=== PATIENT | male | born 1925 | race Caucasian/White ===

== ENCOUNTER 2017-02-21 11:45 | Inpatient (IN) | payer OTHER, BC ==
--- NOTE | 2017-02-21 12:45 | PDOC ---
History of Present Illness - General History Source: Patient Exam Limitations: No Limitations - History of Present Illness Initial Comments: 02/21/17 13:25 The patient is a 89 year old male BIBA, with a significant past medical history of Atrial fibrillation, CAD, MS, CHF, Duodenal ulcer, GIB, HTN, HLD, frequent falls who presents to the emergency department with L hip pain s/p mechanical fall 2 days ago. Caregiver states the patient fell on his L side while transferring him from the wheelchair to the commode. Patient reports pain 4/10 in severity without radiation or numbness. Patient denies any injuries, head trauma, LOC, dizziness or lightheadedness. Patient also complaints of diarrhea for the past day due to eating funny clams and has been feeling weak since then. Patient denies taking any pain medications for relief. Caregiver decided to bring the patient in for further evaluation. He denies chest pain, headache or dizziness. He denies fever, chills, abdominal pain, nausea, vomit, constipation. He denies dysuria, frequency, urgency or hematuria. Allergies: NKA Past surgical history: Appendectomy, CABG x4, cholecystectomy, L hip replacement , bilateral ankle surgery, L shoulder dislocation Social history: None PCP: Dr. Ryan Ramos <Rayne Fowler - Last Filed: 02/21/17 17:53> <Fartun Ku - Last Filed: 02/24/17 12:07> - General Stated Complaint: FALL/LEFT HIP Time Seen by Provider: 02/21/17 11:50 Past History <Rayne Fowler - Last Filed: 02/21/17 17:53> - Past Medical History Anemia: No Asthma: No Cancer: No Cardiac Disorders: Yes (CABG/Stent, mi, afib, cad) CVA: No COPD: No CHF: Yes Dementia: No Diabetes: No GI Disorders: Yes (Duodenal Ulcer, GIB) Disorders: No HTN: Yes Hypercholesterolemia: Yes Liver Disease: No Seizures: No Thyroid Disease: No - Surgical History Abdominal Surgery: Yes (DUODENAL SCAR-half his stomach) Appendectomy: Yes Cardiac Surgery: Yes (CABG x 4) Cholecystectomy: Yes Lung Surgery: No Neurologic Surgery: No Orthopedic Surgery: Yes (LT HIP REPLACEMENT, RT ARM sx, b/l ANKLE SX, left shoulder dislocation) - Immunization History Immunization Up to Date: Yes - Psycho/Social/Smoking Cessation Hx Anxiety: Yes Suicidal Ideation: No Smoking Status: No Smoking History: Never smoked Have you smoked in the past 12 months: No Number of Cigarettes Smoked Daily: 0 Hx Alcohol Use: No Drug/Substance Use Hx: No Substance Use Type: None Hx Substance Use Treatment: No <KuFartun - Last Filed: 02/24/17 12:07> - Past Medical History Allergies/Adverse Reactions: Allergies Allergy/AdvReac Type Severity Reaction Status Date / Time No Known Drug Allergies Allergy Verified 02/21/17 12:47 Home Medications: Ambulatory Orders Alprazolam 0.5 mg PO Q12H PRN 06/20/15 Amlodipine Besylate [Norvasc -] 10 mg PO DAILY 06/20/15 Ascorbic Acid [Vitamin C] 500 mg PO DAILY 06/20/15 Atorvastatin Ca [Lipitor] 40 mg PO HS 06/20/15 Calcium Carbonate/Vitamin D3 [Calcium 600-Vit D3 800 Tablet] 1 each PO DAILY Epinastine HCl 1 drop OU BID 06/20/15 Metoprolol Tartrate [Lopressor] 50 mg PO BID 06/20/15 Mirtazapine [Remeron -] 15 mg PO HS 06/20/15 Omeprazole [Prilosec] 20 mg PO DAILY 06/20/15 Carboxymethylcellulose Sodium [Lubricant Eye Drops] 1 drop OU BID 06/21/15 Latanoprost 0.005% Eye Drops [Xalatan 0.005% Eye Drops -] 1 drop OU HS 06/21/15 Spironolactone [Aldactone] 25 mg PO DAILY #0 tablet 06/26/15 Review of Systems - Review of Systems Able to Perform ROS?: Yes Comments:: 02/21/17 13:26 GENERAL/CONSTITUTIONAL: No fever or chills. No weakness. HEAD, EYES, EARS, NOSE AND THROAT: No change in vision. No ear pain or discharge. No sore throat. GASTROINTESTINAL: No nausea, vomiting, diarrhea or constipation. GENITOURINARY: No dysuria, frequency, or change in urination. CARDIOVASCULAR: No chest pain or shortness of breath. RESPIRATORY: No cough, wheezing, or hemoptysis. MUSCULOSKELETAL: + L hip pain. No joint or muscle swelling or pain. No neck or back pain. SKIN: No rash NEUROLOGIC: No headache, vertigo, loss of consciousness, or change in strength/ sensation. ENDOCRINE: No increased thirst. No abnormal weight change. HEMATOLOGIC/LYMPHATIC: No anemia, easy bleeding, or history of blood clots. ALLERGIC/IMMUNOLOGIC: No hives or skin allergy. <MalcolmRayne hammond - Last Filed: 02/21/17 17:53> *Physical Exam - Vital Signs Last Vital Signs Temp Pulse Resp BP Pulse Ox 98.0 F 79 18 103/62 95 02/21/17 12:48 02/21/17 12:48 02/21/17 12:48 02/21/17 12:48 02/21/17 12:48 <Palmer Fowlerhel - Last Filed: 02/21/17 17:53> ED Treatment Course - LABORATORY CBC & Chemistry Diagram: 02/21/17 13:19 02/21/17 13:19 <MlacolmRayne - Last Filed: 02/21/17 17:53> - LABORATORY CBC & Chemistry Diagram: 02/21/17 13:19 02/21/17 13:19 <Fartun Ku - Last Filed: 02/24/17 12:07> Medical Decision Making - Medical Decision Making 02/21/17 13:27 L Femur XR Impression: Periprosthetic fracture of the left intertrochanteric/ subtrochanteric femur. See above. Findings were discussed with Dr. Ku 4: 00 PM on February 21, 2017. Reported By: Victorina Scott MD 02/21/17 1603 L Hip/Pelvis XR IMPRESSION: Periprosthetic fracture of the left intertrochanteric/ subtrochanteric femur. See above. Findings were discussed with Dr. Ku 4: 00 PM on February 21, 2017. Reported By: Victorina Scott MD 02/21/17 1603 L Tib/Fib XR Impression: Acute nondisplaced fracture is seen in the proximal left fibula. Reported By: Buddy Villasenor MD 02/21/17 1413 02/21/17 16:07-- Dr. Khanna called via phone answering service. 02/21/17 16:21-- Dr. Khanna returned the page and the patient's case was discussed. 02/21/17 16:13-- Dr. Ramos paged via phone answering service 02/21/2017 16:19 -- Dr. Ramos returned the page and the patient's case was discussed. 02/21/17 17:50-- Dr. Khanna evaluated the patient in the ED 02/21/17 17:53-- Informed Dr. Ramos that patient will be transferred to [facility] due to complexity of orthopedic surgery. <Rayne Fowler - Last Filed: 02/21/17 17:53> - Medical Decision Making 02/21/17 17:55 Dr. Khanna at bedside to evaluate. Recommended transfer to [facility], as the surgery will be rather complicated and extensive. Dr. Ramos notified. 02/21/17 17:59 Accepted to [facility] by Dr. Adams, orthopedics. <Fartun Ku - Last Filed: 02/24/17 12:07> *DC/Admit/Observation/Transfer - Attestations Scribe Attestion: 02/21/17 13:26 Documentation prepared by Rayne Fowler, acting as medical office manager for Fartun Ku MD <Rayne Fowler - Last Filed: 02/21/17 17:53> - Transfer to Acute Care Facility Receiving Facility: [facility]. <Fartun Ku - Last Filed: 02/24/17 12:07> Diagnosis at time of Disposition: Periprosthetic fracture around internal prosthetic hip joint Qualifiers: Encounter type: initial encounter Laterality: left Qualified Code(s): M97.02XA - Periprosthetic fracture around internal prosthetic left hip joint, initial encounter Fracture, fibula, proximal Qualifiers: Encounter type: initial encounter Fracture type: closed Fracture morphology: unspecified fracture morphology Laterality: left Qualified Code(s): S82.832A - Other fracture of upper and lower end of left fibula, initial encounter for closed fracture - Discharge Dispostion Disposition: TRANSFER ACUTE CARE/OTHER HOSP Condition at time of disposition: Stable - Referrals
[2017-02-21] MEDS ORDERED: ACETAMINOPHEN 325 MG TABLET (FP) PO ONE (12:47)
[2017-02-21 12:57] VITALS: BMI 47.2
[2017-02-21] MEDS ORDERED: ACETAMINOPHEN 325 MG TABLET (FP) ONE (13:23)
[2017-02-21 13:45] LABS: BASOPHIL 0.9 % (0-2.0); EOSINOPHIL 0.1 % (0-4.5); MCHC 33.9 g/dl (32.0-35.9); MEAN CELL VOLUME 97.3 fl (80-96); MEAN PLT VOLUME 8.6 fl (7.5-11.1); NEUTROPHILS 78.4 % (42.8-82.8); PLATELET COUNT 166 K/MM3 (134-434); RDW 14.8 % (11.9-15.9); WHITE BLOOD COUNT 10.2 K/mm3 (4.0-10.0)
[2017-02-21 13:59] LABS: INR 1.14 (0.82-1.09); PROTHROMBIN TIME (PATIENT) 12.6 SEC (9.98-11.88)
[2017-02-21 14:14] LABS: ALBUMIN 3.4 g/dl (3.4-5.0); ANION GAP 12 (8-16); BILIRUBIN,TOTAL 1.4 mg/dL (0.2-1.0); CALCIUM 8.9 mg/dL (8.5-10.1); CO2 23 mmol/L (21-32); CREATININE 2.8 mg/dL (0.7-1.3); GLUCOSE,RANDOM 101 mg/dL (74-106); SGOT/AST 22 U/L (15-37); SGPT/ALT 15 U/L (12-78); TOT PROT 6.6 g/dl (6.4-8.2)
[2017-02-21 14:15] LABS: ALK PHOS 70 U/L (45-117)
[2017-02-21 20:18] VITALS: BP 110/52; PULSE 71; TEMP 96.9
--- NOTE | 2017-02-22 08:35 | CONS ---
EMERGENCY ROOM CONSULTATION DATE OF CONSULTATION: 02/21/[address] [facility] Emergency Room. HISTORY OF PRESENT ILLNESS: Patient is an 89-year-old male status post fall 2 days ago. He has been complaining of worsening pain and inability to walk on his left hip since that time. Patient is status post a left total hip replacement many years ago. He is unsure when. He knows that it was done at the [facility]. Patient has a cardiac history, has had a stent placement. He has also had multiple other orthopedic fractures with a right Gamma nail on his right side, ORIF of his ankle, ORIF of his humerus. PHYSICAL EXAMINATION: His left lower extremity shows an externally rotated. Marked increased pain with range of motion of his hip. Good range of motion of knee, ankle, and toes. Neurovascularly intact. X-rays taken in the emergency room show a left periprosthetic fracture, [place] B classification with a loose femoral component. The acetabular component appears well fixed, but with minimal version. IMPRESSION: Loose left total hip replacement with an acute periprosthetic femur fracture below a well-fixed acetabulum with minimal version. Patient requires revision left hip with a long stem prosthesis and fixation of the bone and possible revision of the acetabular component. Due to the complexity of this nature, this patient will be transferred from [facility] to a tertiary care facility, probably the [facility], where his procedure was performed, as well as where his cardiac stent was performed. ALIE YOO M.D. [id number]
--- NOTE | 2017-02-24 10:46 | EKG ---
Test Reason : Blood Pressure : / mmHG Vent. Rate : 083 BPM Atrial Rate : 096 BPM P-R Int : 000 ms QRS Dur : 164 ms QT Int : 420 ms P-R-T Axes : 000 066 238 degrees QTc Int : 493 ms ATRIAL FIBRILLATION NON-SPECIFIC INTRA-VENTRICULAR CONDUCTION BLOCK POSSIBLE RIGHT VENTRICULAR HYPERTROPHY POSSIBLE INFERIOR INFARCT (CITED ON OR BEFORE 16-APR-2006) CANNOT RULE OUT ANTEROSEPTAL INFARCT (CITED ON OR BEFORE 05-AUG-2001) T WAVE ABNORMALITY, CONSIDER LATERAL ISCHEMIA ABNORMAL ECG WHEN COMPARED WITH ECG OF 20-JUN-2015 18:18, NO SIGNIFICANT CHANGE WAS FOUND Confirmed by JORDEN RAMÍREZ MD ([id number]) on 02/24/2017 10:46:12 AM Referred By: Confirmed By:JORDEN RAMÍREZ MD
== END 2017-02-21 22:31 | disposition short-term general hospital (02) | DRG 536 ==
LOC: JER 11:45 → JERBED 16:16
PROVIDERS: ADMIT Internal Medicine; ATTEND Internal Medicine
DX: S72.142A Displaced intertrochanteric fracture of left femur, initial encounter for closed fracture (principal); M97.02XA Periprosthetic fracture around internal prosthetic left hip joint, initial encounter; I48.91 Unspecified atrial fibrillation; I25.10 Atherosclerotic heart disease of native coronary artery without angina pectoris; I25.2 Old myocardial infarction; E78.5 Hyperlipidemia, unspecified; I11.0 Hypertensive heart disease with heart failure; I50.9 Heart failure, unspecified; R29.6 Repeated falls; Z95.1 Presence of aortocoronary bypass graft; S82.832A Other fracture of upper and lower end of left fibula, initial encounter for closed fracture; W19.XXXA Unspecified fall, initial encounter; Y93.89 Activity, other specified; Y92.098 Other place in other non-institutional residence as the place of occurrence of the external cause; Y99.8 Other external cause status
CPT/HCPCS: 36415; 73523-TC; 73552-TC-LT; 73590-TC-LT; 80053; 85025; 85610; 93005; 93010; 99284-25